=== PATIENT | female | born 1950 | race Caucasian/White ===

== ENCOUNTER → 2017-05-11 | Outpatient (CLI) | payer OTHER ==
--- NOTE | 2017-05-14 08:39 | MM ---
Reason for exam: screening (asymptomatic). Last mammogram was performed 2 years and 9 months ago. History: Patient is postmenopausal and had first child at age 33. Family history of breast cancer in maternal cousin. Took progesterone for 3 years beginning at age 56. Physical Findings: A clinical breast exam by your physician is recommended on an annual basis and results should be correlated with mammographic findings. MG Screening Mammo w CAD Bilateral CC and MLO view(s) were taken. Prior study comparison: August 25, 2014, bilateral MG screening mammo w CAD. December 25, 2011, bilateral digital screening mammo w/CAD. There are scattered fibroglandular densities. There is some developing architectural distortion in the right breast at 10-11 o'clock middle position. This finding is changed when compared with previous exams. ASSESSMENT: Incomplete: need additional imaging evaluation, BI-RAD 0 RECOMMENDATION: Special view mammogram of the right breast. If lesion persists on supplemental views, image directed ultrasound is recommended. [facility] will attempt to contact patient to return for supplemental views and ultrasound if indicated.
== END ==
LOC: RADMAMWWP 12:51
PROVIDERS: ATTEND Family Medicine
DX: Z12.31 Encounter for screening mammogram for malignant neoplasm of breast (principal)

== ENCOUNTER → 2017-05-24 | Outpatient (CLI) | payer OTHER ==
--- NOTE | 2017-05-25 13:15 | MM ---
Reason for exam: additional evaluation requested from abnormal screening. Last mammogram was performed less than 1 month ago. History: Patient is postmenopausal and had first child at age 33. Family history of breast cancer in maternal cousin. Took progesterone for 3 years beginning at age 56. Physical Findings: Nurse did not find any significant physical abnormalities on exam. MG Work Up Mamm w CAD RT CC, MLO, ML, spot compression CC, and spot compression MLO view(s) were taken of the right breast. Prior study comparison: May 11, 2017, bilateral MG screening mammo w CAD. August 25, 2014, bilateral MG screening mammo w CAD. There are scattered fibroglandular densities. Finding: There are typically benign round calcifications in the right breast. Nodular density upper outer quadrant of the right breast 10 cm from nipple is less conspicuous, however a ultrasound is recommended. These results were verbally communicated with the patient and result sheet given to the patient on 05/24/17. ASSESSMENT: Incomplete: need additional imaging evaluation, BI-RAD 0 RECOMMENDATION: Ultrasound of the right breast.
--- NOTE | 2017-05-25 13:19 | USB ---
Reason for exam: additional evaluation requested from abnormal screening. History: Patient is postmenopausal and had first child at age 33. Family history of breast cancer in maternal cousin. Took progesterone for 3 years beginning at age 56. US Breast Workup Limited RT Right breast ultrasound demonstrates a 0.4 x 0.2 x 0.4cm oval, too small to characterize lesion at 10 o'clock, and a ductal at nipple. These results were verbally communicated with the patient and result sheet given to the patient on 05/24/17. ASSESSMENT: Probably benign, BI-RAD 3 RECOMMENDATION: Follow-up diagnostic mammogram of the right breast in 6 months.
== END | disposition home or self-care (01) ==
LOC: RADMAMWWP 14:55
PROVIDERS: ATTEND Family Medicine
DX: R92.8 Other abnormal and inconclusive findings on diagnostic imaging of breast (principal)
CPT/HCPCS: 76642; G0206

== ENCOUNTER → 2018-03-04 | Outpatient (CLI) | payer OTHER ==
--- NOTE | 2018-03-04 13:42 | MM ---
Reason for exam: follow-up at short interval from prior study. Last mammogram was performed 9 months ago. History: Patient is postmenopausal and had first child at age 33. Family history of breast cancer in maternal cousin. Took progesterone for 3 years beginning at age 56. Physical Findings: Nurse did not find any significant physical abnormalities on exam. MG Diagnostic Mammo RT w CAD CC and MLO view(s) were taken of the right breast. Prior study comparison: May 24, 2017, right breast MG work up mamm w CAD RT. May 11, 2017, bilateral MG screening mammo w CAD. There are scattered fibroglandular densities. Asymmetric density superiorly appears similar to 2017 and more prominent from 2013. Additional short interval follow up recommended. These results were verbally communicated with the patient and result sheet given to the patient on 03/04/18. ASSESSMENT: Probably benign, BI-RAD 3 RECOMMENDATION: Follow-up diagnostic mammogram of both breasts in 6 months.
== END | disposition home or self-care (01) ==
LOC: RADMAMWWP 12:44
PROVIDERS: ATTEND Family Medicine
DX: R92.8 Other abnormal and inconclusive findings on diagnostic imaging of breast (principal)
CPT/HCPCS: 77065

== ENCOUNTER → 2019-07-18 | Outpatient (CLI) | payer MEDICARE ==
--- NOTE | 2019-07-19 14:40 | MR ---
EXAMINATION TYPE: MR knee LT wo con DATE OF EXAM: 07/18/2019 COMPARISON: None HISTORY: Pain in left knee TECHNIQUE: Multiplanar, multisequence imaging of the left knee is performed without IV contrast. FINDINGS: The anterior and posterior cruciate ligaments are intact. There is knee joint effusion. There is a 4 x 1 cm popliteal cyst. The collateral ligaments are intact. There is 1.5 cm area of increased signal in the medial aspect medial tibial condyle consistent with a bone bruise and edema. Lateral meniscus is intact. The medial meniscus shows complex tear of the posterior horn. There is so me narrowing of the medial joint space. The patella is intact. IMPRESSION: There is some osteoarthritic narrowing of the medial joint space with evidence of a small bone bruise in the medial tibial condyle. There is complex tear of the posterior horn medial meniscus. No eviden ce of ligamentous tear. Knee joint effusion and popliteal cyst.
== END ==
LOC: RADMRIMAIN 14:07
PROVIDERS: ATTEND Orthopaedic Surgery
DX: S83.232A Complex tear of medial meniscus, current injury, left knee, initial encounter (principal); M17.12 Unilateral primary osteoarthritis, left knee; M71.22 Synovial cyst of popliteal space [Baker], left knee

== ENCOUNTER 2019-09-25 07:11 | Day surgery (SDC) | payer MEDICARE ==
[2019-09-22 14:27] VITALS: BMI 40.6
--- NOTE | 2019-09-24 20:43 | HP ---
HISTORY AND PHYSICAL REASON FOR ADMISSION: Surgery scheduled 09/25/2019 Keyanna Espitia is a 68-year-old patient seen with progressive left knee pain. We discussed options for treatment. She elected to proceed with arthroscopy. Consent was obtained. PAST MEDICAL HISTORY: Hypothyroidism, hypertension, hyperlipidemia. PAST SURGICAL HISTORY: Right knee arthroscopy. DAILY MEDICATIONS: Amlodipine, atorvastatin, hydrochlorothiazide, levothyroxine. ALLERGIES: SULFA. SOCIAL HISTORY: She denies tobacco use. PHYSICAL EXAMINATION: Evaluation of the left knee range of motion is 0 to 125 degrees. Mild effusion. Tenderness medial joint line. Positive medial Meaghan's. Ligaments stable. Hip rotation without pain. Distal neurovascular exam intact. RADIOGRAPHS: Left knee radiographs revealed moderate osteoarthritis. MRI left knee revealed medial meniscal tear and osteoarthritis. IMPRESSION: 1. Internal derangement, left knee with medial meniscal tear. 2. Left knee osteoarthritis. 3. Hypertension. 4. Hyperlipidemia. 5. Hypothyroidism. PLAN: Left knee arthroscopy with partial meniscectomy and debridement. Surgery scheduled 09/25/2019. MMODL / IJN: [id number] /
[~2019-09-25 07:11] MED LIST: DEXAMETHASONE SOD PHOSPHATE 10 MG/ML 1 ML VIAL IV ONE; HYDROmorphone 0.5 MG/0.5 ML SYRINGE IVP PRN; LACTATED RINGERS 1,000 ML IV SCH; LIDOCAINE 1% 20 ML VIAL (10MG/ML) FOR IV START INTRADERMA PRN; ONDANSETRON 4 MG/2 ML VIAL IVP ONE
[2019-09-25 07:52] LABS: Glucose,Whole Blood 137 mg/dL (75-99)
[2019-09-25] MEDS ORDERED: PROPOFOL 10 MG/ML 20 ML VIAL IV ONE (08:20)
[2019-09-25] MEDS ORDERED: SUCCINYLCHOLINE CHLORIDE 100 MG/5 ML SYR IV ONE (08:20)
[2019-09-25] MEDS ORDERED: MIDAZOLAM 2 MG/2 ML VIAL ONE (08:20)
[2019-09-25] MEDS ORDERED: LIDOCAINE 1% INJ 10MG/ML (20 ML MDV) ONE (08:20)
[2019-09-25] MEDS ORDERED: fentaNYL (PF) 50 MCG/ML 2 ML AMP ONE (08:20)
[2019-09-25] MEDS ORDERED: BUPIVACAIN-EPI 0.25%-1:200,000 30 ML VIAL INTRAARTIC ONE ×2 (08:48→08:58)
--- NOTE | 2019-09-25 09:15 | P.OP ---
Date of Procedure: 09/25/19 Preoperative Diagnosis: Internal derangement left knee Postoperative Diagnosis: 1. Tear medial meniscus left knee 2. Grade 3/4 chondromalacia medial femoral condyle left knee 3. Reactive synovitis medial, lateral and suprapatellar compartments left knee Procedure(s) Performed: 1. Arthroscopic partial medial meniscectomy left knee 2. Arthroscopic chondroplasty medial femoral condyle left knee 3. Arthroscopic partial synovectomy medial, lateral and suprapatellar compartments left knee Anesthesia: GETA, local Surgeon: Tad Ricci Estimated Blood Loss (ml): 8 Pathology: none sent Condition: stable Disposition: PACU Indications for Procedure: 68-year-old patient seen with progressive left knee pain. After treatment options were discussed, she elected to proceed with arthroscopy. Operative Findings: See description of procedure Description of Procedure: Patient was taken to the operative suite. Patient underwent a general anesthetic by the department of anesthesia. Patient was given preoperative antibiotics. The left lower extremity was placed in a well-padded arthroscopic leg couch. The left leg was prepped and draped in the normal sterile orthopedic fashion. A lateral parapatellar incision was made. Trochars were inserted. Arthroscopy was initiated. Suprapatellar pouch revealed diffuse thick reactive synovitis. The patellofemoral joint appeared to articulate congruently. There was grade 2 chondromalacia with no osteochondral tears present. The scope was guided into the medial gutter. No loose bodies or plica were identified. The scope was then guided into the medial compartment. A medial parapatellar incision was made. Trocar inserted followed by probe. There was a complex tear posterior horn medial meniscus. There were grade 3/4 chondromalacia changes of the medial femoral condyle with some osteochondral flap tears present. There were grade 4 chondromalacia changes along the medial aspect of the tibial plateau. There was thick reactive synovitis anteriorly. I performed a partial medial meniscectomy. I performed a chondroplasty of the medial femoral condyle. I performed a partial synovectomy. The residual meniscus was probed and found to be stable. The residual osteochondral surface of the femoral condyle was stable. There was good decompression of the synovitis. Scope and probe were then guided into the intercondylar notch. Cruciates were identified, probed and found to be stable. The scope and probe were then guided into lateral compartment. The lateral meniscus was probed and found to be stable. There were grade 1/2 chondromalacia changes lateral femoral condyle. There was thick reactive synovitis anteriorly. I introduced a motorized shaver and performed a chondroplasty to lateral femoral condyle. I performed a partial synovectomy decompressing the thick reactive synovitis anteriorly along lateral compartment. Shaver was removed. There was good decompression of the synovitis. The scope was in guided back into the suprapatellar compartment. I introduced a motorized shaver into the suprapatellar compartment. I debrided some piecemeal fragments of meniscus I encountered. I performed a partial synovectomy decompressing the reactive synovitis. The shaver was removed. I now took one more look on the entire knee, no residual debris. Instruments were now removed from the joint. The joint was infiltrated with .25% Marcaine. The 2 portal sites were approximated with nylon suture. Sterile dressings were applied. The patient was placed into a MIGUELINA hose. No tourniquet was utilized. The patient was awakened, transferred to a bed and taken to recovery stable satisfactory condition.
[2019-09-25 09:17] VITALS: RESP 16; TEMP 96.9
[2019-09-25] MEDS ORDERED: KETOROLAC 30 MG/ML 1 ML VIAL IVP ONE (09:26)
[2019-09-25] MEDS ORDERED: HYDROcodone/APAP 5-325MG 1 EACH TAB PO ONE (10:08)
[2019-09-25 10:11] VITALS: BP 130/62; PULSE 75
== END 2019-09-25 10:36 | disposition home or self-care (01) ==
LOC: OR 07:11
PROVIDERS: ATTEND Orthopaedic Surgery
DX: S83.242A Other tear of medial meniscus, current injury, left knee, initial encounter (principal); X58.XXXA Exposure to other specified factors, initial encounter; M94.262 Chondromalacia, left knee; M65.862 Other synovitis and tenosynovitis, left lower leg; M17.12 Unilateral primary osteoarthritis, left knee; I10 Essential (primary) hypertension; K21.9 Gastro-esophageal reflux disease without esophagitis; E78.5 Hyperlipidemia, unspecified; E03.9 Hypothyroidism, unspecified; Z90.710 Acquired absence of both cervix and uterus; Z98.51 Tubal ligation status; Z79.890 Hormone replacement therapy; Z79.899 Other long term (current) drug therapy; Z88.2 Allergy status to sulfonamides
CPT/HCPCS: 29881; 29876; J2250; J0690; J2001; J3010; J1885; J0330; J2704

== ENCOUNTER → 2021-02-01 | Day surgery (SDC) | payer MEDICARE, OTHER ==
[2021-01-27 11:34] VITALS: BMI 39.6
[~2021-02-01] MED LIST changes: -DEXAMETHASONE SOD PHOSPHATE 10 MG/ML 1 ML VIAL IV ONE; +GLYCOPYRROLATE 0.2 MG/ML 2 ML VIAL ONE; -HYDROmorphone 0.5 MG/0.5 ML SYRINGE IVP PRN; -LIDOCAINE 1% 20 ML VIAL (10MG/ML) FOR IV START INTRADERMA PRN; +LIDOCAINE 1% INJ 10MG/ML (20 ML MDV) ONE; -ONDANSETRON 4 MG/2 ML VIAL IVP ONE; +ONDANSETRON 4 MG/2 ML VIAL IVP PRN; +PROPOFOL 10 MG/ML 20 ML VIAL IV ONE
[2021-02-01 07:17] VITALS: TEMP 97
[2021-02-01 07:17] LABS: Glucose,Whole Blood 159 mg/dL (75-99)
--- NOTE | 2021-02-01 07:50 | P.GSHP ---
History of Present Illness H&P Date: 02/01/21 Chief Complaint: Colon cancer screening 70-year-old female here today for colonoscopy. This is for screening purposes. Family history of colon cancer in her father. No bowel complaints. Over the last 1-2 days she has had left-sided abdominal pain however. No fevers. Past Medical History Past Medical History: Diabetes Mellitus, Hyperlipidemia, Hypertension, Thyroid Disorder Additional Past Medical History / Comment(s): hx of colon polyps, states constipation/diarrhea History of Any Multi-Drug Resistant Organisms: None Reported Past Surgical History: Bowel Resection, Hernia Repair, Hysterectomy, Orthopedic Surgery Additional Past Surgical History / Comment(s): colonoscopy, ovarian cysts removed, incisional hernias removed x4, scope rt knee, meniscus repair left knee, bilateral cataracts Past Anesthesia/Blood Transfusion Reactions: Postoperative Nausea & Vomiting (PONV) Past Psychological History: Depression Smoking Status: Never smoker Past Alcohol Use History: Rare Past Drug Use History: None Reported - Past Family History Father Family Medical History: Cancer Additional Family Medical History / Comment(s): colon Medications and Allergies Home Medications Medication Instructions Recorded Confirmed Type Escitalopram [Lexapro] 20 mg PO DAILY 09/22/19 01/27/21 History Famotidine [Pepcid] 10 mg PO DAILY PRN 09/22/19 01/27/21 History Levothyroxine Sodium [Synthroid] 75 mcg PO DAILY 09/22/19 01/27/21 History Multivitamins, Thera [Multivitamin 1 tab PO DAILY 09/22/19 01/27/21 History (formulary)] amLODIPine BESYLATE/BENAZEPRIL 1 cap PO DAILY 09/22/19 01/27/21 History [Lotrel 5-10 MG] hydroCHLOROthiazide [Hydrodiuril] 50 mg PO DAILY 09/22/19 01/27/21 History Aspirin [Adult Low Dose Aspirin EC] 81 mg PO DAILY 01/27/21 01/27/21 History Atorvastatin [Lipitor] 20 mg PO HS 01/27/21 01/27/21 History Biotin 5 mg PO DAILY 01/27/21 01/27/21 History Ergocalciferol (Vitamin D2) 50 mcg PO DAILY 01/27/21 01/27/21 History [Vitamin D2 (2000 Iu)] Escitalopram [Lexapro] 20 mg PO DAILY 01/27/21 01/27/21 History metFORMIN HCL 500 mg PO BID 01/27/21 01/27/21 History Allergies Allergy/AdvReac Type Severity Reaction Status Date / Time adhesive tape Allergy blisters Verified 02/01/21 07:08 Sulfa (Sulfonamide Allergy Rash/Hives Verified 02/01/21 07:08 Antibiotics) Surgical - Exam Vital Signs Temp Pulse Resp BP Pulse Ox 97.0 F L 94 17 157/77 100 02/01/21 07:16 02/01/21 07:16 02/01/21 07:16 02/01/21 07:16 02/01/21 07:16 Physical exam: General: Well-developed, well-nourished HEENT: Normocephalic, sclerae nonicteric Abdomen: mild llq tenderness, nondistended Extremities: No edema Neuro: Alert and oriented Results - Labs Abnormal Lab Results - Last 24 Hours (Table) 02/01/21 Range/Units 07:13 POC Glucose (mg/dL) 159 H (75-99) mg/dL Assessment and Plan (1) Colon cancer screening Narrative/Plan: Will proceed with colonoscopy at this time Current Visit: Yes Status: Acute Code(s): Z12.11 - ENCOUNTER FOR SCREENING FOR MALIGNANT NEOPLASM OF COLON SNOMED Code(s): 816202711
--- NOTE | 2021-02-01 08:05 | P.PCN ---
Date of Procedure: 02/01/21 Procedure(s) Performed: PREOPERATIVE DIAGNOSIS: Colon cancer screening POSTOPERATIVE DIAGNOSIS: Tortuous sigmoid unable to advance beyond mid sigmoid colon PROCEDURE: Colonoscopy attempted ANESTHESIA: MAC SURGEON: Zeyad Mims M.D. SPECIMENS: None ENDOSCOPIC PROCEDURE: The patient was placed on the endoscopy table in the left decubitus position. The Olympus colonoscope was inserted into the anus and passed under direct visualization to the mid sigmoid colon. The patient's colon was quite tortuous and I was unable to advance the colon more proximal. Multiple attempts were made. The scope was slowly withdrawn. No abnormalities were identified in the sigmoid and rectum. Digital rectal examination was normal. The patient was taken to the recovery room in stable condition per anesthesia guidelines. RECOMMENDATIONS: Will order barium enema for patient either later today or tomorrow.
[2021-02-01 08:25] VITALS: RESP 18
[2021-02-01 09:47] VITALS: BP 134/81; PULSE 73
--- NOTE | 2021-02-01 15:39 | FL ---
EXAMINATION TYPE: FL barium enema DATE OF EXAM: 02/01/2021 COMPARISON: NONE HISTORY: Incomplete recent colonoscopy. Last colonoscopy 5 years ago per patient. TECHNIQUE: A double contrast barium enema study is attempted. A total 1 minute 58 seconds of fluoros copic time. 9 spot images saved to PACS. FINDINGS: Auto Dismantler view of the abdomen shows overall non-obstructive bowel gas pattern. Numerous coils from prior hernia repair surgery overlie the pelvis. The enema study is attempted after catheter was inserted and balloon is inflated. Patient has severe pain with difficulty passing contrast in retrograde fashion and procedure had to be terminated prior to diagnostic evaluation. There is tortuosity of visualized portion of sigmoid rectal colon with foca l prominence. Sigmoid colonic diverticula are partially imaged. IMPRESSION: Nondiagnostic study. Consider CT colonography to further evaluate.
== END ==
LOC: ORWHC2ENDO 06:54
PROVIDERS: ATTEND Surgery
DX: Z12.11 Encounter for screening for malignant neoplasm of colon (principal); Q43.8 Other specified congenital malformations of intestine; Z80.0 Family history of malignant neoplasm of digestive organs; E11.9 Type 2 diabetes mellitus without complications; E78.5 Hyperlipidemia, unspecified; I10 Essential (primary) hypertension; E07.9 Disorder of thyroid, unspecified; Z86.010 Personal history of colon polyps; Z90.49 Acquired absence of other specified parts of digestive tract; Z90.710 Acquired absence of both cervix and uterus; Z98.890 Other specified postprocedural states; Z98.42 Cataract extraction status, left eye; Z98.41 Cataract extraction status, right eye; F32.9 Major depressive disorder, single episode, unspecified; Z79.84 Long term (current) use of oral hypoglycemic drugs; Z79.82 Long term (current) use of aspirin; Z79.890 Hormone replacement therapy; Z79.899 Other long term (current) drug therapy; Z88.2 Allergy status to sulfonamides
CPT/HCPCS: 74270; J2001; J2704; G0121

== ENCOUNTER → 2021-02-11 | Outpatient (CLI) | payer MEDICARE ==
[2021-02-11 10:38] LABS: African American GFR (CKD) >90 (>60 ml/min/1.73 sqM); Blood Urea Nitrogen 21 mg/dL (7-17); Non-African American GFR(CKD) 78 (>60 ml/min/1.73 sqM)
--- NOTE | 2021-02-11 12:28 | CT ---
EXAMINATION TYPE: CT abdomen pelvis w con DATE OF EXAM: 02/11/2021 COMPARISON: None HISTORY: failed colonoscopy, colon obstruction CT DLP: 1443.9 mGycm CONTRAST: CT scan of the abdomen and pelvis is performed with Oral Contrast and with IV Contrast, patient injec christy with 100 mL of Isovue 300. FINDINGS: LUNG BASES-: No visible nodule. No infiltrate. LIVER/GB: Hepatic steatosis with mild hepatomegaly. No space occupying hepatic lesion. Biliary tree i s of normal caliber. PANCREAS: No inflammation. No distinct mass. SPLEEN: No splenic enlargement. No lesion seen. ADRENALS: No nodule. No thickening. KIDNEYS/BLADDER: No hydronephrosis. No nephrolithiasis. Small subcentimeter simple cyst upper pole left kidney. Urinary bladder grossly unremarkable. BOWEL: There is sigmoid redundancy noted. On axial image 61 there is a focal area of the luminal narr owing. Underlying lesion is difficult to exclude. The remainder of the colon and small bowel appear u nremarkable. GENITAL ORGANS: No gross abnormality. LYMPH NODES: No greater than 1cm abdominal or pelvic lymph nodes are appreciated. AORTA: No significant abnormality. OSSEOUS STRUCTURES: No significant abnormality is seen. OTHER: Anterior abdominal wall [place] hernia containing a short segment of small bowel. There is n o evidence for incarceration. Hernia measures 6.8 cm craniocaudal dimension by 7.2 cm transverse dime nsion. IMPRESSION: 1. There is sigmoid redundancy noted. On axial image 61 there is a focal area of the luminal narrowin g. Underlying lesion is difficult to exclude. 2. anterior abdominal wall hernia as noted.
== END | disposition home or self-care (01) ==
LOC: RADCTMAIN 09:57
PROVIDERS: ATTEND Surgery
DX: K43.9 Ventral hernia without obstruction or gangrene (principal); Q43.8 Other specified congenital malformations of intestine
CPT/HCPCS: 82565; 84520; 74177; 36415; Q9967

== ENCOUNTER → 2021-10-25 | Outpatient (CLI) | payer MEDICARE ==
--- NOTE | 2021-10-27 11:11 | MM ---
Reason for exam: screening (asymptomatic). Last mammogram was performed 3 years and 8 months ago. History: Patient is postmenopausal and had first child at age 33. Family history of breast cancer in maternal cousin. Took progesterone for 3 years beginning at age 56. Physical Findings: A clinical breast exam by your physician is recommended on an annual basis and results should be correlated with mammographic findings. MG 3D Screening Mammo W/Cad Bilateral CC and MLO view(s) were taken. Prior study comparison: March 04, 2018, right breast MG diagnostic mammo RT w CAD. May 24, 2017, right breast MG work up mamm w CAD RT. There are scattered fibroglandular densities. Benign oil cyst and secretory calcifications bilaterally. No significant changes when compared with prior studies. ASSESSMENT: Benign, BI-RAD 2 RECOMMENDATION: Routine screening mammogram of both breasts in 1 year.
== END | disposition home or self-care (01) ==
LOC: RADMAMWWP 13:29
PROVIDERS: ATTEND Family Medicine
DX: Z12.31 Encounter for screening mammogram for malignant neoplasm of breast (principal); Z78.0 Asymptomatic menopausal state; Z80.3 Family history of malignant neoplasm of breast
CPT/HCPCS: 77063; 77067

== ENCOUNTER 2021-11-24 09:17 | Day surgery (SDC) | payer MEDICARE ==
[2021-11-22 15:18] VITALS: BMI 39.8
--- NOTE | 2021-11-23 16:30 | HP ---
HISTORY AND PHYSICAL DATE OF SURGERY: 11/24/2021 Keyanna Marques is a 71-year-old patient seen with progressive right knee pain. Options for treatment were discussed with her. She elected to proceed with right knee arthroscopy. Consent was obtained. Cardiac clearance was provided by Dr. Christine, medical clearance by Dr. Duran. PAST MEDICAL HISTORY: Hypertension, hyperlipidemia, cardiovascular disease, hypothyroidism. PAST SURGICAL HISTORY: Right knee arthroscopy. DAILY MEDICATIONS: Atorvastatin, aspirin, hydrochlorothiazide, levothyroxine. ALLERGIES: SULFA. SOCIAL HISTORY: She denies tobacco use. PHYSICAL EVALUATION OF THE RIGHT KNEE: Range of motion is zero to 130. Mild effusion. Tenderness, medial joint line. Positive medial Meaghan's. Ligaments stable. Hip rotation without pain. Distal neurovascular exam is intact. Radiographs of the right knee revealed moderate osteoarthritis involving the medial compartment. MRI right knee revealed a medial meniscal tear and osteoarthritic changes. IMPRESSION: 1. Internal derangement of right knee with medial meniscal tear. 2. Hypertension. 3. Hyperlipidemia. 4. Hypothyroidism. PLAN: Right knee arthroscopy with partial meniscectomy and debridement. MMODL / IJN: [id number] /
[~2021-11-24 09:17] MED LIST changes: +DEXAMETHASONE SOD PHOSPHATE 4 MG/ML 1 ML VIAL IV ONE; -GLYCOPYRROLATE 0.2 MG/ML 2 ML VIAL ONE; -LIDOCAINE 1% INJ 10MG/ML (20 ML MDV) ONE; +MIDAZOLAM 2 MG/2 ML VIAL IV PRN; +ONDANSETRON 4 MG/2 ML VIAL IVP ONE; -ONDANSETRON 4 MG/2 ML VIAL IVP PRN; -PROPOFOL 10 MG/ML 20 ML VIAL IV ONE
[2021-11-24 09:54] LABS: Glucose,Whole Blood 103 mg/dL (75-99)
[2021-11-24] MEDS ORDERED: PROPOFOL 10 MG/ML 20 ML VIAL IV ONE (11:47)
[2021-11-24] MEDS ORDERED: LIDOCAINE 1% INJ 10MG/ML (20 ML MDV) ONE (11:47)
[2021-11-24] MEDS ORDERED: fentaNYL (PF) 50 MCG/ML 2 ML AMP ONE (11:47)
[2021-11-24] MEDS ORDERED: SUCCINYLCHOLINE CHLORIDE 100 MG/5 ML SYR IV ONE (11:47)
[2021-11-24] MEDS ORDERED: BUPIVACAINE (PF) 0.25% 30 ML VIAL SQ ONE (12:14)
[2021-11-24 12:37] VITALS: TEMP 97.6
--- NOTE | 2021-11-24 12:39 | P.OP ---
Date of Procedure: 11/24/21 Preoperative Diagnosis: Internal derangement right knee Postoperative Diagnosis: 1. Grade 4 chondromalacia medial femoral condyle right knee 2. Complex tear posterior horn medial meniscus right knee 3. Reactive synovitis medial, lateral and suprapatellar compartments right knee Procedure(s) Performed: 1. Arthroscopic microfracture medial femoral condyle right knee 2. Arthroscopic partial medial meniscectomy right knee 3. Arthroscopic partial synovectomy medial, lateral and suprapatellar compartments right knee Anesthesia: REYESA, local Surgeon: Tad Ricci Estimated Blood Loss (ml): 7 Pathology: none sent Condition: stable Disposition: PACU Indications for Procedure: 71-year-old patient seen with progressive right hip pain. After having treatment options discussed, she elected to proceed with arthroscopy. Operative Findings: See description of procedure Description of Procedure: Patient was taken to the operative suite. Patient underwent a general anesthetic by the department of anesthesia. Patient was given preoperative antibiotics. The right lower extremity was placed in a well-padded arthroscopic leg couch. The right leg was prepped and draped in the normal sterile orthopedic fashion. A lateral parapatellar and suprapatellar incision was made. Trochars were inserted. Arthroscopy was initiated. Suprapatellar pouch revealed diffuse thick reactive synovitis. The patellofemoral joint appeared to articulate congruently. There was grade 1/2 chondromalacia of the patella with no significant osteochondral tears present. The scope was guided into the medial gutter. Loose bodies or plica were identified The scope was then guided into the medial compartment. A medial parapatellar incision was made. Trocar inserted followed by probe. Was a complex tear involving the posterior horn medial meniscus extending into the midbody. There were grade 4 chondromalacia changes of the medial femoral condyle and tibial plateau both having some exposed bone present. There was some thick reactive synovitis anteriorly. I performed a partial medial meniscectomy getting down to stable meniscal tissue. I performed a partial synovectomy decompressing the thick reactive some-itis anteriorly. The shaver was now removed. I now performed a microfracture to the medial femoral condyle penetrating the bone with resultant bleeding at the microfracture site. The residual osteochondral surface was stable. The residual meniscus was stable. There was good decompression of synovitis. Scope and probe were then guided into the intercondylar notch. Cruciates were identified, probed and found to be stable. The scope and probe were then guided into lateral compartment. Lateral meniscus was found to have some mild degeneration but no tears. There were grade 2 chondromalacia changes throughout the lateral compartment with no tears. There was some thick reactive some-itis anteriorly. I introduced a motorized shaver and performed a partial synovectomy. Shaver was removed. There was good decompression of synovitis. The scope was in guided back into the suprapatellar compartment. I introduced a motorized shaver into the suprapatellar compartment. I debrided some piecemeal fragments of meniscus I encountered. I performed a partial synovectomy. The shaver was removed. There was good decompression of synovitis. I now took one more look around the entire knee, no residual debris. Instruments were now removed from the joint. The joint was infiltrated with .25% Marcaine. The portal sites were approximated utilizing nylon suture. Sterile dressings were applied. The patient was placed into a MIGUELINA hose. No tourniquet was utilized. The patient was awakened, transferred to a bed and taken to recovery stable satisfactory condition.
[2021-11-24] MEDS: HYDROmorphone 0.5 MG/0.5 ML SYRINGE IVP PRN ×2 (12:47→13:04)
[2021-11-24 14:19] VITALS: BP 104/49; PULSE 61; RESP 18
== END 2021-11-24 14:42 | disposition home or self-care (01) ==
LOC: OR 09:17
PROVIDERS: ATTEND Orthopaedic Surgery
DX: M23.91 Unspecified internal derangement of right knee (principal); M23.203 Derangement of unspecified medial meniscus due to old tear or injury, right knee; M22.41 Chondromalacia patellae, right knee; M65.861 Other synovitis and tenosynovitis, right lower leg; I10 Essential (primary) hypertension; E78.5 Hyperlipidemia, unspecified; I25.10 Atherosclerotic heart disease of native coronary artery without angina pectoris; E03.9 Hypothyroidism, unspecified; E11.9 Type 2 diabetes mellitus without complications; Z98.49 Cataract extraction status, unspecified eye; M19.90 Unspecified osteoarthritis, unspecified site; I48.91 Unspecified atrial fibrillation; I34.1 Nonrheumatic mitral (valve) prolapse; Z90.710 Acquired absence of both cervix and uterus; Z98.890 Other specified postprocedural states; Z79.82 Long term (current) use of aspirin; Z79.890 Hormone replacement therapy; Z79.899 Other long term (current) drug therapy; Z88.6 Allergy status to analgesic agent; Z88.1 Allergy status to other antibiotic agents; Z88.2 Allergy status to sulfonamides; Z91.09 Other allergy status, other than to drugs and biological substances
CPT/HCPCS: 29881; 29879; 29876; J1100; J0690; J2405; J2001; J3010; J0330; J2704; J1170

== ENCOUNTER → 2021-12-12 | Outpatient (CLI) | payer MEDICARE ==
--- NOTE | 2021-12-12 19:29 | BD ---
EXAMINATION TYPE: Axial Bone Density DATE OF EXAM: 12/12/2021 COMPARISON: 20 CLINICAL HISTORY: 71 years year old Female. ICD-10 CODE: M81.0 KNOWN OSTEOPOROSIS Height: 57 Weight: 184.7 FRAX RISK QUESTIONS: Alcohol (3 or more units per day): no Family History (Parent hip fracture): no Glucocorticoids (More than 3mos): no (Ex: prednisone, prednisolone, methylprednisolone, dexamethasone, and hydrocortisone). History of Fracture in Adulthood: yes Secondary Osteoporosis: 1. Type 1 Diabetes: no 2. Hyperthyroidism: no 3. Menopause before 45: yes 4. Malnutrition: no 5. Chronic liver disease: no Rheumatoid Arthritis: no Current Tobacco Use: no RISK FACTORS HISTORY OF: Surgery to Spine/Hip(right/left)/Wrist (right/left): no Family History of Osteoporosis: no Active: no Diet low in dairy products/other sources of calcium: yes Postmenopausal woman: yes MEDICATIONS: Thyroid Medications: thyroid How Lon years Additional History: EXAM MEASUREMENTS: Bone mineral densitometry was performed using the [employer] System. Bone mineral density as measured about the Lumbar spine is: ----- L1-L4(G/cm2): 0.986 T Score Values are as follows: ----- L1: -1.7 ----- L2: -1.0 ----- L3: -1.3 ----- L4: -2.4 ----- L1-L4: -1.6 Bone mineral density has: decreased -5.5 % since study of: 05.12.2010 Bone mineral density about the R hip (g/cm2): 0.807 Bone mineral density about the L hip (g/cm2): -0.761 T Score values are as follows: -----R Neck: -1.7 -----L Neck: -2.0 -----R Total: -1.1 -----L Total: -1.3 Bone mineral density has: decreased -10.4 % since study of: 05.12.2010 FRAX%s: The graph provided illustrates a 16.9% chance for a major osteoporotic fx and a 2.9% chance f or the hips probability for fx in 10 years time. IMPRESSION: Osteopenia (T Score between -2.5 and -1). There is slightly increased risk of fracture and the patient may be considered for treatment. Re-Screen 2-5 years. NOTE: T-SCORE=SD OF THE YOUNG ADULT MEAN.
== END | disposition home or self-care (01) ==
LOC: RADBDWWP 13:24
PROVIDERS: ATTEND Family Medicine
DX: Z12.31 Encounter for screening mammogram for malignant neoplasm of breast (principal); M81.0 Age-related osteoporosis without current pathological fracture
CPT/HCPCS: 77080

== ENCOUNTER → 2023-01-12 | Outpatient (CLI) | payer MEDICARE ==
[2023-01-12 20:04] LABS: INR 0.97 (0.90-1.11)
[2023-01-12 20:06] LABS: Anion Gap 13.3 mmol/L (10.00-18.00); BUN/Creat Ratio 25.13 Ratio (12.00-20.00); Blood Urea Nitrogen 20.1 mg/dL (9.0-27.0); Calcium 11.1 mg/dL (8.7-10.3); Carbon Dioxide 27.7 mmol/L (20.0-27.5); Non-African American GFR(CKD) 74.2 (60.0-200.0); Potassium 4.3 mmol/L (3.5-5.5)
[2023-01-12 22:51] LABS: Basophils # (A) 0.04 X 10*3/uL (0.00-0.10); Basophils % (A) 0.5 %; Eosinophils # (A) 0.17 X 10*3/uL (0.04-0.35); HCT 41.9 % (37.2-46.3); Immature Grans, Automated 0.4 %; Lymphocytes # (A) 3.36 X 10*3/uL (0.90-5.00); Lymphocytes % (A) 40.1 %; MCH 29.5 pg (27.0-32.0); Mean Platelet Volume 10.7 fL (9.5-12.2); Monocytes # (A) 0.69 X 10*3/uL (0.20-1.00); Monocytes % (A) 8.2 %; NRBC Per 100 WBC 0 /100 WBCS (0.0-0.0); Neutrophils # (A) 4.09 X 10*3/uL (1.80-7.70); Neutrophils % (A) 48.8 %; Platelet Count 339 X 10*3/uL (140-440); RBC 4.41 X 10*6/uL (4.10-5.20); RDW 13.5 % (11.5-14.5); WBC 8.38 X 10*3/uL (4.50-10.00)
== END | disposition home or self-care (01) ==
LOC: LABPAT 13:07
PROVIDERS: ATTEND Orthopaedic Surgery
DX: Z01.812 Encounter for preprocedural laboratory examination (principal); M17.11 Unilateral primary osteoarthritis, right knee; Z22.322 Carrier or suspected carrier of Methicillin resistant Staphylococcus aureus
CPT/HCPCS: 36415; 80048; 85025; 85610; 87070

== ENCOUNTER 2023-02-05 10:10 | Day surgery (SDC) | payer MEDICARE ==
[2023-01-31 14:19] VITALS: BMI 36.6
--- NOTE | 2023-02-04 12:28 | HP ---
HISTORY AND PHYSICAL DATE OF SURGERY: 02/05/2023. HISTORY OF PRESENT ILLNESS: Keyanna Marques is a 72-year-old patient, who was seen with symptomatic right knee osteoarthritis. After treatment options were discussed with her, she elected to proceed with right total knee arthroplasty. Consent regarding the procedure was obtained. Medical clearance provided by Dr. Dank Duran. Cardiac clearance provided by Dr. Christine. PAST MEDICAL HISTORY: Cardiovascular disease, hypertension, hyperlipidemia, hypothyroidism. PAST SURGICAL HISTORY: Knee arthroscopy. DAILY MEDICATIONS: 1. Amlodipine. 2. Aspirin. 3. Atorvastatin. 4. Hydrochlorothiazide. 5. Levothyroxine. 6. Eliquis. ALLERGIES: Sulfa. SOCIAL HISTORY: She denies current tobacco use. PHYSICAL EVALUATION OF THE RIGHT KNEE: Range of motion is -2 to 120 degrees. [id number]-gg-[id number] effusion. Tenderness in the medial joint line. Crepitus along the medial patellofemoral compartments with range of motion. Some pain with patellofemoral compression. Ligaments stable. Hip rotation without pain. Distal neurovascular exam is intact. IMAGING STUDIES: Radiographs of the right knee reveal severe osteoarthritic changes. IMPRESSION: 1. Right knee osteoarthritis. 2. Hyperlipidemia. 3. Hypertension. 4. Hypothyroidism. 5. Cardiovascular disease. PLAN: Right total knee arthroplasty. MMODL / IJN: [id number] /
[~2023-02-05 10:10] MED LIST changes: +ACETAMINOPHEN TAB 500 MG TAB PO PRN; -DEXAMETHASONE SOD PHOSPHATE 4 MG/ML 1 ML VIAL IV ONE; +HYDROmorphone 0.5 MG/0.5 ML SYRINGE IVP PRN; -LACTATED RINGERS 1,000 ML IV SCH; +LIDOCAINE 1% (10MG/ML) FOR IV START INTRADERMA PRN; +MELOXICAM 7.5 MG TAB PO PRN; -MIDAZOLAM 2 MG/2 ML VIAL IV PRN; +TRANEXAMIC ACID IN NACL,ISO-OS 1,000 MG in SALINE 1 100ML.BAG IVPB PRN
[2023-02-05] MEDS: LACTATED RINGERS 1,000 ML IV SCH ×2 (10:36→17:51)
[2023-02-05 10:55] LABS: Glucose,Whole Blood 99 mg/dL (70-110)
[2023-02-05] MEDS ORDERED: fentaNYL (PF) 50 MCG/ML 2 ML AMP IVP ONE (11:15)
[2023-02-05] MEDS ORDERED: MIDAZOLAM 2 MG/2 ML VIAL IVP ONE (11:15)
[2023-02-05] MEDS ORDERED: DEXAMETHASONE SOD PHOSPHATE 4 MG/ML 1 ML VIAL IVP ONE (11:36)
[2023-02-05] MEDS ORDERED: SUCCINYLCHOLINE CHLORIDE 200 MG/10 ML VIAL IV ONE (12:07)
[2023-02-05] MEDS ORDERED: HYDROmorphone (PF) 1 MG/ML ONE (12:07)
[2023-02-05] MEDS ORDERED: LIDOCAINE 2% INJ 20 MG/ML (2 ML VIAL) ONE (12:07)
[2023-02-05] MEDS ORDERED: fentaNYL (PF) 50 MCG/ML 2 ML AMP ONE (12:07)
[2023-02-05] MEDS ORDERED: SODIUM CHLORIDE 0.9% (PF) 10 ML VIAL ONE (12:07)
[2023-02-05] MEDS ORDERED: MIDAZOLAM 2 MG/2 ML VIAL ONE (12:07)
[2023-02-05] MEDS ORDERED: TRANEXAMIC ACID IN NACL,ISO-OS 1,000 MG/100 ML BAG ONE (12:07)
[2023-02-05] MEDS ORDERED: PROPOFOL 10 MG/ML 20 ML VIAL IV ONE (12:07)
[2023-02-05] MEDS ORDERED: ROPIVACAINE 5 MG/ML 30 ML VIAL ONE (12:07)
[2023-02-05] MEDS ORDERED: LIDOCAINE 4% LTA KIT (4 ML) TOPICAL ONE (12:07)
--- NOTE | 2023-02-05 12:39 | P.ANPRN ---
Procedure Note - Anesthesia - Nerve Block Performed Right Adductor Canal Infusion Time Out Performed: Yes (1114) Date of Procedure: 02/05/23 Procedure Start Time: 11:15 Procedure Stop Time: :22 Location of Patient: PreOp Indication: Acute Post-Operative Pain, Requested by Surgeon Specifically requested for management of pain by DrLuly: Tad Ricci Sedation Type: Sedate with meaningful contact maintained Preparation: Sterile Prep, Sterile Dressing Position: Supine Catheter Depth at Skin (cm): 9 Catheter: Indwelling Needle Types: Pajunk Needle Gauge: 18, 21 Ultrasound used to visualize needle placement: Yes Ultrasound used to observe medication spread: Yes Injectate: 0.5% Ropivacaine (see comment for volume) (15cc + 5cc nacl pf) Blood Aspirated: No Pain Paresthesia on Injection Noted: No Resistance on Injection: Normal Image Stored and Saved: Yes Events: Uneventful and Well Tolerated
--- NOTE | 2023-02-05 12:40 | P.ANPRN ---
Procedure Note - Anesthesia - Nerve Block Performed Right iPack Single Time Out Performed: Yes (1114) Date of Procedure: 02/05/23 Procedure Start Time: Procedure Stop Time: Location of Patient: PreOp Indication: Acute Post-Operative Pain, Requested by Surgeon Specifically requested for management of pain by DrLuly: Tad Ricci Sedation Type: Sedate with meaningful contact maintained Preparation: Sterile Prep Position: Supine Catheter: None Needle Types: Pajunk Needle Gauge: 21 Ultrasound used to visualize needle placement: Yes Ultrasound used to observe medication spread: Yes Injectate: 0.5% Ropivacaine (see comment for volume) (15cc + 5cc nacl pf) Blood Aspirated: No Pain Paresthesia on Injection Noted: No Resistance on Injection: Normal Image Stored and Saved: Yes Events: Uneventful and Well Tolerated
[2023-02-05] MEDS ORDERED: ceFAZolin 1,000 MG in SODIUM CHLORIDE 0.9% 1,000 ML IRRIGATION ONE (12:46)
[2023-02-05] MEDS ORDERED: HYDROcodone/APAP 5-325MG 1 EACH TAB PO PRN (14:02)
[2023-02-05] MEDS ORDERED: HYDROmorphone 0.5 MG/0.5 ML SYRINGE IVP PRN ×3 (14:02)
[2023-02-05] MEDS ORDERED: ONDANSETRON 4 MG/2 ML VIAL IVP PRN (14:02)
[2023-02-05] MEDS ORDERED: NALOXONE 0.4 MG/ML 1 ML VIAL IV PRN (14:02)
--- NOTE | 2023-02-05 14:02 | P.OP ---
Date of Procedure: 02/05/23 Preoperative Diagnosis: Right knee osteoarthritis Postoperative Diagnosis: Right knee osteoarthritis Procedure(s) Performed: Right total knee arthroplasty Implants: 1. Depuy attune size 3 right cruciate retaining cemented femur 2. Depuy attune size 3 fixed bearing cemented tibial baseplate 3. Depuy attune size 3 fixed bearing cruciate retaining 7 mm polyethylene tibial insert 4. Depuy attune 35 mm all polyethylene cemented patella Anesthesia: regional (Adductor canal catheter, Ipack block), spinal Surgeon: Tad Ricci Transportation Associate #1: Ellis Connor Estimated Blood Loss (ml): 55 Pathology: other (bone) Condition: stable Disposition: PACU Indications for Procedure: 72-year-old patient seen with symptomatic right knee osteoarthritis, after having treatment options discussed she elected to proceed with total knee arthroplasty. Operative Findings: See description of procedure Description of Procedure: Patient was taken to the operative suite after having an adductor canal catheter placed by the department of anesthesia. Patient underwent a spinal anesthetic by the department of anesthesia. Patient was given preoperative IV intake antibiotics and TXA. A well-padded tourniquet was placed about the right lower extremity. The lower extremity was then prepped and draped in the normal sterile orthopedic fashion. The extremity was elevated, a tourniquet was insufflated to 300. A standard anterior incision was made sharply through skin. Dissection was taken down through the subcutaneous soft tissues down to the extensor mechanism. A medial arthrotomy was performed, patella was everted and knee was flexed. There was advanced osteoarthritis noted. I introduced my distal intramedullary femoral drill. I then introduced the distal femoral cutt ing jig. Logan CONWAY secured the cutting jig with 2 pins. I held retractors in position while Logan CONWAY performed the distal femoral resection through the guide area we now removed her distal femoral cutting guide. We now placed our 4-in-1 femoral cutting block and positioned and it was secured with 2 pins by Logan CONWAY while I held the block in position. The distal femoral finishing was now completed. A proximal tibial cutting guide was positioned. I held the guide in the appropriate position with both hands well Logan CONWAY inserted stabilizing pins into the guide. Proximal tibial cut was made. We now placed a trial femoral component into position, along with an appropriate size tibial tray and insert. We now took the knee through range of motion and had full extension good flexion and good overall soft tissue balance noted. The patella was everted and stabilized with 2 towel clips held by Logan CONWAY while I performed a flush with patellar quad tendon utilizing a fresh sawblade. We templated the patella, appropriate drill holes were made. An appropriate trial patella was positioned, knee was taken through full range of motion with the patella tracking very nicely. The trial patella was removed. Drill holes were made through the femoral component. All trial components were removed after marking off the appropriate rotation of the tibia. Retractors were now positioned along the proximal tibia. An appropriate keel punch was made with the appropriate size tibial guide by myself on Logan CONWAY assisted by holding retractors. At this point appropriate size implants were chosen and opened. The joint was irrigated copiously with pulse lavage mechanical irrigation. The wound was irrigated with pulse lavage mechanical irrigation. We mixed antibiotic methylmethacrylate. We placed the knee into flexion. We placed multiple retractors assisted by Logan CONWAY to expose the proximal tibia. Once the methyl methacrylate was ready, the tibial component was cemented into place removing any excess methylmethacrylate form by both myself and Logan CONWAY. The femoral component was cemented into place removing the removing any excess methylmethacrylate performed by both myself and Logan CONWAY. We then inserted the appropriate size polyethylene tibial insert. We made sure that it was locked into position. We took the knee into full extension, and then back in a flexion making sure we had removed any excess methylmethacrylate. The patellar component was then cemented down and secured with clamp. Excess methylmethacrylate removed. We kept the knee in full extension, patellar clamp in position until methylmethacrylate had hardened. Once it had hardened the patellar clamp was removed. The knee was taken through full range of motion. The patella tracked nicely. There was good soft tissue balancing. The tourniquet was now released. Additional hemostasis was achieved via electrocautery. A second gram of TXA was given. The wound again was irrigated with pulse lavage mechanical irrigation. The extensor mechanism was repaired with Ethibond suture. We checked the repair with range of motion and it was stable. The subcutaneous soft tissues were repaired with Vicryl in layers. The skin was approximated with pernio/Dermabond. Sterile dressings were applied followed by loose web roll and Edinson bandage. The patient was transferred to a bed, and taken to recovery in stable and satisfactory condition. Logan CONWAY assisted with this complex procedure.
[2023-02-05] MEDS ORDERED: ROPIVACAINE 1,100 MG, SODIUM CHLORIDE 0.9% 500 ML 330 ML, EMPTY PAIN BALL 1 EACH MISCELLANE PRN ×2 (14:33)
[2023-02-05 14:42] LABS: Glucose,Whole Blood 124 mg/dL (70-110)
[2023-02-05] MEDS ORDERED: diphenhydrAMINE 50 MG/ML 1 ML VIAL IVP ONE (14:49)
--- NOTE | 2023-02-05 15:04 | XR ---
EXAMINATION TYPE: XR knee limited RT DATE OF EXAM: 02/05/2023 COMPARISON: NONE HISTORY: 72-year-old female evaluation for postoperative abnormality and alignment TECHNIQUE: 2 views FINDINGS: Images show placement of right total knee arthroplasty. Both distal femoral and proximal tibial compo nent prosthesis are well seated without periprosthetic fracture. Alignment grossly anatomic. Anterior soft tissue swelling with soft tissue air as well as intra-articular air related to recent operation . IMPRESSION: Uncomplicated postoperative appearance right total knee arthroplasty.
[2023-02-05] MEDS ORDERED: SENNOSIDES-DOCUSATE SODIUM 1 EACH TAB PO SCH (21:00)
[2023-02-05] MEDS: HYDROcodone/APAP 7.5-325MG 1 EACH TAB PO PRN (21:14)
[2023-02-05 21:30] LABS: Glucose,Whole Blood 242 mg/dL (70-110)
[2023-02-05] MEDS ORDERED: ATORVASTATIN 20 MG TAB PO SCH (21:33)
[2023-02-05] MEDS: metFORMIN 500 MG TAB PO SCH (21:44)
[2023-02-05] MEDS: ASPIRIN 81 MG PO SCH (21:44)
[2023-02-06] MEDS: LACTATED RINGERS 1,000 ML IV SCH ×3 (02:17→08:22)
[2023-02-06 05:52] LABS: Glucose,Whole Blood 94 mg/dL (70-110)
[2023-02-06] MEDS: HYDROcodone/APAP 7.5-325MG 1 EACH TAB PO PRN ×2 (05:56→10:50)
[2023-02-06] MEDS ORDERED: LEVOTHYROXINE 75 MCG TAB PO SCH (06:30)
--- NOTE | 2023-02-06 07:51 | P.PN ---
Progress Note - Text Progress Note Date: 02/06/23 ([id number]) Anesthesiology Postop day 1 status post total knee arthroplasty with adductor canal catheter. Patient doing well. VAS 8 out of 10. Gross strength intact in lower extremity. Afebrile. Denies alterations in sensorium. Catheter site intact. Heart regular rate Lungs nonlabored Abdomen nondistended Assessment: Postop day 1 status post total knee arthroplasty with adductor canal catheter Plan: 1.All questions answered. Maintain catheter 2 more days with patient removal at home. Instructions to be given at discharge. 2.This note was dictated using [employer] software. Please be advised there is a potential for misspellings or errors in enrichment assistant.
[2023-02-06 08:00] VITALS: BP 110/60; PULSE 75; RESP 16; TEMP 98.3
[2023-02-06] MEDS: ASPIRIN 81 MG PO SCH (08:16)
[2023-02-06] MEDS: metFORMIN 500 MG TAB PO SCH (08:16)
[2023-02-06 09:00] LABS: Basophils # (A) 0.01 X 10*3/uL (0.00-0.10); Basophils % (A) 0.1 %; Eosinophils # (A) 0 X 10*3/uL (0.04-0.35); Eosinophils % (A) 0 %; HCT 33.9 % (37.2-46.3); HGB 10.8 g/dL (12.0-15.0); Immature Grans, Automated 0.7 %; Lymphocytes # (A) 1.12 X 10*3/uL (0.90-5.00); Lymphocytes % (A) 8.5 %; MCH 30.3 pg (27.0-32.0); MCHC 31.9 g/dL (32.0-37.0); MCV 95.2 fL (80.0-97.0); Mean Platelet Volume 9.9 fL (9.5-12.2); Monocytes # (A) 0.83 X 10*3/uL (0.20-1.00); Monocytes % (A) 6.3 %; NRBC Per 100 WBC 0 /100 WBCS (0.0-0.0); Neutrophils # (A) 11.05 X 10*3/uL (1.80-7.70); Neutrophils % (A) 84.4 %; Platelet Count 293 X 10*3/uL (140-440); RBC 3.56 X 10*6/uL (4.10-5.20); RDW 13.6 % (11.5-14.5)
[2023-02-06] MEDS ORDERED: NON FORMULARY DRUG (Biotin [Biotin] 5 MG Capsule) PO SCH (09:00)
[2023-02-06] MEDS ORDERED: amLODIPine 5 MG TAB PO SCH (09:00)
[2023-02-06] MEDS ORDERED: NON FORMULARY DRUG (Ergocalciferol (Vitamin D2) [Vitamin D2 (2000 Iu)] 50 MCG Tablet) PO SCH (09:00)
[2023-02-06] MEDS ORDERED: lisinopriL 10 MG TAB PO SCH (09:00)
[2023-02-06] MEDS ORDERED: ENOXAPARIN 30 MG/0.3 ML SYRINGE SQ SCH (09:00)
[2023-02-06] MEDS ORDERED: ESCITALOPRAM 20 MG TAB PO SCH (09:00)
[2023-02-06 11:32] LABS: Glucose,Whole Blood 121 mg/dL (70-110)
[2023-02-06] MEDS ORDERED: MULTIVITAMINS, THERA 1 EACH TAB PO SCH (12:00)
--- NOTE | 2023-02-06 13:01 | P.PN ---
Subjective Progress Note Date: 02/06/23 Principal diagnosis: s/p right total knee arthroplasty Patient evaluated at bedside today, she is resting comfortably in her hospital bed. Patient to ambulate very well with physical therapy. Her pain is controlled with current medications. She is urinating with no difficulties. She denies headaches, lightheadedness, chest pain or shortness of breath. Objective - Vital Signs Vital signs: Vital Signs Temp 98.3 F 02/06/23 07:33 Pulse 75 02/06/23 07:33 Resp 16 02/06/23 11:37 BP 110/60 02/06/23 07:33 Pulse Ox 92 L 02/06/23 09:08 FiO2 Intake & Output 02/05/23 02/06/23 02/06/23 18:59 06:59 18:59 Intake Total 851 Output Total 55 Balance 796 Weight 80.7 kg Intake: IV 851 Output: Estimated Blood Loss 55 Other: Voiding Method Toilet Toilet # Voids 6 - Exam Right lower extremely: Incision is clean, dry, and intact. The foam dressing is in good condition. There is minimal soft tissue swelling and ecchymosis surrounding the medial and lateral aspects of the incision. Calf is soft, no tenderness with palpation. Plantar flexion, dorsiflexion, EHL, FHL are intact. Sensory exam to light touch throughout the extremity is intact, dorsal pedis pulses 2+. - Labs CBC & Chem 7: 02/06/23 04:12 Labs: Abnormal Lab Results - Last 24 Hours (Table) 02/05/23 02/05/23 02/06/23 Range/Units 14:40 21:29 04:12 WBC 13.10 H (4.50-10.00) X 10*3/uL RBC 3.56 L (4.10-5.20) X 10*6/uL Hgb 10.8 L (12.0-15.0) g/dL Hct 33.9 L (37.2-46.3) % MCHC 31.9 L (32.0-37.0) g/dL Immature Gran # 0.09 H (0.00-0.04) X 10*3/uL Neutrophils # 11.05 H (1.80-7.70) X 10*3/uL Eosinophils # 0 L (0.04-0.35) X 10*3/uL POC Glucose (mg/dL) 124 H 242 H (70-110) mg/dL 02/06/23 Range/Units 11:31 WBC (4.50-10.00) X 10*3/uL RBC (4.10-5.20) X 10*6/uL Hgb (12.0-15.0) g/dL Hct (37.2-46.3) % MCHC (32.0-37.0) g/dL Immature Gran # (0.00-0.04) X 10*3/uL Neutrophils # (1.80-7.70) X 10*3/uL Eosinophils # (0.04-0.35) X 10*3/uL POC Glucose (mg/dL) 121 H (70-110) mg/dL Assessment and Plan Assessment: Postoperative day #1 status post right total knee arthroplasty Plan: Pain control, discharged home on [place] 7.5 mg/325 mg DVT prophylaxis, patient did receive Lovenox during inpatient stay, she will resume her prescribed oral anticoagulant tomorrow Wound care instructions discussed, this included showering, icing and elevating an On-Q pain catheter Home physical therapy session nursing after discharge, also CPM Medical recommendations Discharge planning: Plan for discharge home today Time with Patient: Less than 30
--- NOTE | 2023-02-06 13:05 | P.DS ---
Providers Date of admission: 02/05/2023 Expected date of discharge: 02/06/23 Attending physician: Tad Ricci Consults: 02/05/23 14:02 Consult Physician Routine Consulting Provider: Dank Duran Reason/Comments: Medical management Do you want consulting provider notified?: Yes Primary care physician: Dank Duran Hospital Course: Date of admission: 02/05/2023 Date of discharge: 02/06/2023 Admission diagnosis: Status post right total knee arthroplasty Discharge diagnosis: Same Attending physician: Dr. Ricci Surgical procedures: Right total knee arthroplasty Brief history: Patient is a 72-year-old female with a history of with progressive primary right knee osteoarthritis. At this point patient has failed conservative treatment measures and has opted to proceed with a elective right total knee arthroplasty. Hospital course: Details of patient's surgery can be found in operative report. Patient tolerated the procedure well and was subsequently transported to orthopedic floor. Patient's orthopeidc and medical care was provided daily. Patient had daily laboratory tests performed for evaluation of overall blood counts. Patient had daily physical therapy to include strengthening range of motion as well as education with walker ambulation. Patient was treated with Lovenox for their postoperative DVT prophylaxis during their inpatient stay. Patient was noted to have a relatively uneventful postoperative course. Patient reported satisfactory pain control with oral pain medications by postoperative day 0. Patient showed satisfactory progress with physical therapy. Patient moved steadily through the program and had no difficulty meeting the goals by postoperative day 1. Given patient's otherwise satisfactory course and having met physical therapy goals, plan is to discharge patient home on postoperative day 1. Discharge condition/disposition: Patient will be discharged home in stable condition. Discharge medications: Instructions are given on resumption of patient's normal daily medications per primary care recommendation, in addition patient will be prescribed [place] 7.5 mg/325 mg, senna S. Discharge instructions: 1. Wound care and infection precautions, keep incision dry and covered while showering, no lotions, creams, moisturizers. No soaking, tubs, pools, hottubs. Do not scrub over the incision. 2. Weight-bear as tolerated with walker / cane until follow-up. 3. Ice and elevate when necessary. Do not exceed 20 minutes per hour with ice pack. 4. Utilize compression sleeve until seen at first follow up appointment. 5. Visiting nursing care. 6. Home physical therapy including home CPM. 7. Pain meds and anticoagulants per prescription. 8. Pain medication has potential to cause constipation. Increase oral fluid and fiber intake. Contact primary care provider if you have not had a bowel movement within 48 hours after discharge 9. No anti-inflammatory medication until discussed at first post operative visit, this including Motrin, Aleve, Mobic, Diclofenac. 10. Follow up in office at 2 weeks postop with Logan Connor PA-C/Trino Prieto 11. Follow up with your primary care doctor 7-10 days after discharge. 12. Contact [facility] with any questions, . Wound care instructions: 1. Patient to remove foam dressing is a 02/12/2023 2. Okay to shower over incision after removal of dressing Procedures: Right total knee arthroplasty Patient Condition at Discharge: Good Plan - Discharge Summary Discharge Rx Participant: Yes New Discharge Prescriptions: New Sennosides/Docusate Sodium [Senna-S 8.6-50 mg Tablet] 1 each PO DAILY PRN #21 tablet PRN Reason: Constipation HYDROcodone/APAP 7.5-325MG [[place] 7.5] 1 each PO Q6HR PRN #28 tab PRN Reason: Pain No Action amLODIPine BESYLATE/BENAZEPRIL [Lotrel 5-10 MG] 1 cap PO QAM hydroCHLOROthiazide [Hydrodiuril] 50 mg PO DAILY Multivitamins, Thera [Multivitamin (formulary)] 1 tab PO DAILY Levothyroxine Sodium [Synthroid] 75 mcg PO QAM metFORMIN HCL 500 mg PO BID Aspirin [Adult Low Dose Aspirin EC] 81 mg PO DAILY Apixaban [Eliquis] 2.5 mg PO BID Escitalopram [Lexapro] 20 mg PO QAM Atorvastatin [Lipitor] 20 mg PO HS Ergocalciferol (Vitamin D2) [Vitamin D2 (2000 Iu)] 50 mcg PO DAILY Biotin 5 mg PO DAILY Discharge Medication List Levothyroxine Sodium [Synthroid] 75 mcg PO QAM 09/22/19 [History] Multivitamins, Thera [Multivitamin (formulary)] 1 tab PO DAILY 09/22/19 [History] amLODIPine BESYLATE/BENAZEPRIL [Lotrel 5-10 MG] 1 cap PO QAM 09/22/19 [History] hydroCHLOROthiazide [Hydrodiuril] 50 mg PO DAILY 09/22/19 [History] Aspirin [Adult Low Dose Aspirin EC] 81 mg PO DAILY 01/27/21 [History] Atorvastatin [Lipitor] 20 mg PO HS 01/27/21 [History] Biotin 5 mg PO DAILY 01/27/21 [History] Ergocalciferol (Vitamin D2) [Vitamin D2 (2000 Iu)] 50 mcg PO DAILY 01/27/21 [History] Escitalopram [Lexapro] 20 mg PO QAM 01/27/21 [History] metFORMIN HCL 500 mg PO BID 01/27/21 [History] Apixaban [Eliquis] 2.5 mg PO BID 11/22/21 [History] HYDROcodone/APAP 7.5-325MG [[place] 7.5] 1 each PO Q6HR PRN #28 tab 02/06/23 [Rx] Sennosides/Docusate Sodium [Senna-S 8.6-50 mg Tablet] 1 each PO DAILY PRN #21 tablet 02/06/23 [Rx] Follow up Appointment(s)/Referral(s): Dank Duran DO [Primary Care Provider] - 1 Week [facility],Equipment [NON-STAFF] - As Needed (*Please call [facility] once home to arrange delivery of the Continuous Passive Motion (CPM) machine.) [facility], [NON-STAFF] - 1-2 Days ([facility] will call you to schedule your in home nursing and physical therapy visits. ) Ellis Connor, ANAY [PHYSICIAN MACHINIST INSTRUCTOR] - 02/21/23 3:30 pm Activity/Diet/Wound Care/Special Instructions: Orthopedic Discharge Instructions: 1. Wound care and infection precautions, keep incision dry and covered while showering, no lotions, creams, moisturizers. No soaking, pools, hot tubs. Do not scrub over incision. 2. Weight-bear as tolerated with walker / cane until follow-up. 3. Ice and elevate when necessary. Do not exceed 20 minutes per hour with ice pack. 4. Utilize compression sleeve until seen at first follow up appointment. 5. Pain meds and anticoagulants per prescription. 6. Pain medication has potential to cause constipation. Increase oral fluid and fiber intake. Contact primary care provider if you have not had a bowel movement within 48 hours after discharge. 7. No anti-inflammatory medication until discussed at first post operative visit, this including Motrin, Aleve, Mobic, Diclofenac. 8. Follow up in office at 2 weeks postop with Logan Connor PA-C/Trino Kennedy PA-C 9. Follow up with your primary care doctor 7-10 days after discharge. 10. Contact [facility] with any questions, . Wound care instructions: 1. Okay to remove foam dressing as of 02/12/2023 2. After removal of dressing okay to shower over incision Discharge Disposition: HOME WITH HOME HEALTH SERVICES
== END 2023-02-06 14:57 | disposition home health service (06) ==
LOC: OR 10:10 → 4SSUR 13:57 → OR 02-06 14:57
PROVIDERS: ATTEND Orthopaedic Surgery
DX: M17.11 Unilateral primary osteoarthritis, right knee (principal); I10 Essential (primary) hypertension; I25.10 Atherosclerotic heart disease of native coronary artery without angina pectoris; E78.5 Hyperlipidemia, unspecified; E03.9 Hypothyroidism, unspecified; Z79.82 Long term (current) use of aspirin; Z79.01 Long term (current) use of anticoagulants; Z79.890 Hormone replacement therapy; Z79.899 Other long term (current) drug therapy; Z88.2 Allergy status to sulfonamides; G89.18 Other acute postprocedural pain
CPT/HCPCS: 27447; 94760; 97162; 64999; 64448; 85025; 88300; 73560; C1776; C1713 ×2; C1751; J2250; J1200; J1100; J0690 ×3; J2405; J3010; J1650; J2795; J1170 ×2

== ENCOUNTER → 2023-12-28 | Outpatient (CLI) | payer MEDICARE ==
--- NOTE | 2023-12-28 18:17 | US ---
EXAMINATION TYPE: US kidneys/renal and bladder DATE OF EXAM: 12/28/2023 COMPARISON: None CLINICAL INDICATION: Female, 73 years old with history of N28.1 CYST OF KIDNEY, ACQUIRED; Right flank pain. Hx left renal cyst. EXAM MEASUREMENTS: Right Kidney: 10.0 x 4.5 x 4.3 cm Left Kidney: 10.9 x 4.8 x 4.8 cm Right Kidney: No hydronephrosis or masses seen Left Kidney: Mid medial anechoic lesion = 1.6 x 1.7 x 1.4 cm Bladder: moderately distended, anechoic Left jet seen There is no evidence for hydronephrosis at this point in time. No nephrolithiasis is seen. No diana s are identified. The urinary bladder is anechoic. Bilateral ureteral jets are seen. IMPRESSION: 1. No evidence for obstructive uropathy. 2. Left simple appearing renal cysts.
== END | disposition home or self-care (01) ==
LOC: RADUSWWP 16:28
PROVIDERS: ATTEND Family Medicine
DX: N28.1 Cyst of kidney, acquired (principal)
CPT/HCPCS: 76770

== ENCOUNTER → 2024-08-19 | Outpatient (CLI) | payer MEDICARE ==
--- NOTE | 2024-08-20 17:25 | MM ---
Reason for Exam: Screening (asymptomatic). Last mammogram was performed 2 year(s) and 10 month(s) ago. Patient History: Menarche at age 17. First Full-Term at age 33. Late child-bearing (after 31). Left ovary removed at age 53. Right ovary removed at age 53. Hysterectomy at age 37. Postmenopausal. Progesterone for 3 years from age 56 until age 59. Maternal cousin had breast cancer. Risk Values: Cathleen 5 year model risk: 2.2%. NCI Lifetime model risk: 5.7%. Prior Study Comparison: 08/25/2014 Bilateral Screening Mammogram, [facility]. 05/11/2017 Bilateral Screening Mammogram, [facility]. 05/24/2017 Right Diagnostic Mammogram, [facility]. 03/04/2018 Right Diagnostic Mammogram, [facility]. 10/25/2021 Bilateral Screening Mammogram, [facility]. Tissue Density: There are scattered areas of fibroglandular density. Findings: Analyzed By CAD. Chronic nodularity posterior central left breast. Benign bilateral secretory calcifications. Asymmetric density superior right MLO view is unchanged. There is no suspicious group of microcalcifications or new suspicious mass in either breast. Overall Assessment: Benign, BI-RAD 2 Management: Screening Mammogram of both breasts in 1 year. . Patient should continue monthly self-breast exams. A clinical breast exam by your physician is recommended on an annual basis. This exam should not preclude additional follow-up of suspicious palpable abnormalities. Note on Cathleen scores and lifetime risk: 1. A Cathleen score greater than 3% is considered moderate risk. If this is the case, consider specialist referral to assess eligibility for a risk reducing agent. 2. If overall lifetime risk for the development of breast cancer is 20% or higher, the patient may qualify for future screening with alternating mammogram and breast MRI. [facility], , 08/20/2024 5:21 PM. Electronically signed and approved by: Prabhakar Suarez M.D. Radiologist
== END | disposition home or self-care (01) ==
LOC: RADMAMWWP 14:02
PROVIDERS: ATTEND Family Medicine
DX: Z12.31 Encounter for screening mammogram for malignant neoplasm of breast (principal); Z78.0 Asymptomatic menopausal state; Z80.3 Family history of malignant neoplasm of breast; Z90.722 Acquired absence of ovaries, bilateral; R92.323 Mammographic fibroglandular density, bilateral breasts
CPT/HCPCS: 77063; 77067

== ENCOUNTER 2024-10-07 07:22 | Day surgery (SDC) | payer MEDICARE ==
[~2024-10-07 07:22] MED LIST changes: -ACETAMINOPHEN TAB 500 MG TAB PO PRN; -HYDROmorphone 0.5 MG/0.5 ML SYRINGE IVP PRN; +LACTATED RINGERS 1,000 ML IV SCH; -MELOXICAM 7.5 MG TAB PO PRN; -ONDANSETRON 4 MG/2 ML VIAL IVP ONE; -TRANEXAMIC ACID IN NACL,ISO-OS 1,000 MG in SALINE 1 100ML.BAG IVPB PRN
[2024-10-07] MEDS: IV FLUID CONTINUATION 1,000 ML IV ONE (07:40)
[2024-10-07 07:46] VITALS: RESP 16; TEMP 98.3
[2024-10-07 07:54] LABS: Glucose,Whole Blood 108 mg/dL (70-110)
[2024-10-07] MEDS ORDERED: PROPOFOL 10 MG/ML 20 ML VIAL IV ONE (08:50)
--- NOTE | 2024-10-07 09:22 | P.PCN ---
Date of Procedure: 10/07/24 Procedure(s) Performed: BRIEF HISTORY: Patient is a 73-year-old pleasant white female scheduled for an elective colonoscopy as a part of evaluation of screening for colon cancer/positive Cologuard. PROCEDURE PERFORMED: Colonoscopy with biopsy and snare polypectomy. PREOPERATIVE DIAGNOSIS: Screening for colon cancer/positive Cologuard. IV sedation per Anesthesia. PROCEDURE: After informed consent was obtained, the patient, was brought into the endoscopy unit. IV sedation was administered by Anesthesia under continuous monitoring. Digital rectal examination was normal. Initially the Olympus CF-160 flexible video pediatric colonoscope was then inserted in the rectum, gradually advanced into the cecum without any difficulty. Careful examination was performed as the scope was gradually being withdrawn. Ileocecal valve and the appendiceal orifice were visualized and appeared normal. Prep was excellent. Mucosa of the cecum, 3 mm polyp that was removed by cold biopsy. In the ascending colon there was a 3 mm and 4 mm polyp that was removed by cold biopsy. In the transverse colon there was a 5 mm, 1 cm and 1.5 cm polyps removed by snare polypectomy. Rest of the ascending colon, transverse colon, descending colon, sigmoid colon, and rectum appeared normal. Retroflexion was performed in the rectum and no lesions were seen. The patient tolerated the procedure well. IMPRESSION: 3 mm cecal polyp status post cold biopsy 3 mm and 4 mm ascending colon polyp status post cold biopsy 5 mm, 1 cm and 1.5 cm polyps in the proximal transverse colon status post hot snare polypectomy Scattered sigmoid diverticula RECOMMENDATIONS: Findings of this examination were discussed with the patient and her family. She was advised to follow-up with the biopsy results. If the biopsy reveals adenoma she can have repeat colonoscopy 3 years..
[2024-10-07 09:42] VITALS: BP 137/79; PULSE 70
== END 2024-10-07 10:03 | disposition home or self-care (01) ==
LOC: ORWHC2ENDO 07:22
PROVIDERS: ATTEND Internal Medicine Gastroenterology
DX: D12.2 Benign neoplasm of ascending colon (principal); D12.3 Benign neoplasm of transverse colon; K57.30 Diverticulosis of large intestine without perforation or abscess without bleeding; I10 Essential (primary) hypertension; E78.5 Hyperlipidemia, unspecified; E07.9 Disorder of thyroid, unspecified; I48.91 Unspecified atrial fibrillation; Z90.89 Acquired absence of other organs; Z89.521 Acquired absence of right knee; Z89.522 Acquired absence of left knee; Z90.01 Acquired absence of eye; Z88.1 Allergy status to other antibiotic agents; L23.1 Allergic contact dermatitis due to adhesives; Z88.2 Allergy status to sulfonamides; Z79.02 Long term (current) use of antithrombotics/antiplatelets; Z79.82 Long term (current) use of aspirin; Z79.890 Hormone replacement therapy; Z79.899 Other long term (current) drug therapy
CPT/HCPCS: 88305; 45380; 45385; J2704